=== PATIENT | male | born 2000 ===

== ENCOUNTER 2024-03-27 09:02 | Emergency (ER) | payer BC, SELFPAY ==
[2024-03-27 09:18] VITALS: BP 133/94; PULSE 87; RESP 16; TEMP 36.2; O2SAT 100
--- NOTE | 2024-03-27 10:19 | ED.GENADULT ---
HPI - General Adult General Chief complaint: Nausea/Vomiting/Diarrhea Stated complaint: Vomiting/Fever/Nausea Source: patient Mode of arrival: ambulatory Limitations: no limitations History of Present Illness HPI narrative: Patient presents for evaluation of nausea, vomiting, diarrhea. Symptom onset 3 days ago. He has also had some dizziness and a headache. No new foods, medications, recent travel, or antibiotic use. He has some lower abdominal cramping. No fevers, chills, cough, shortness of breath, sore throat, otalgia. No recent sick contacts to his knowledge. He does not consume ETOH Related Data Home Medications Medication Instructions Recorded Confirmed escitalopram oxalate 20 mg tablet mg 03/27/24 Allergies Allergy/AdvReac Type Severity Reaction Status Date / Time No Known Allergies Allergy Verified 07/21/15 00:34 Review of Systems Review of Systems: CONSTITUTIONAL: Denies fever, chills, or sweats. EYES: Denies visual changes, redness, or discharge. ENT: Denies rhinorrhea, congestion, sore throat, or otalgia. CARDIOVASCULAR: Denies chest pain, palpitations, or edema. RESPIRATORY: Denies cough or dyspnea. GASTROINTESTINAL: Reports lower abdominal cramping, nausea, vomiting and diarrhea GENITOURINARY: Denies dysuria or hematuria. SKIN: Denies rash or itching. MUSCULOSKELETAL: Denies back pain, joint pain, or myalgia. NEUROLOGIC: Reports headache and dizziness. Denies numbness. PSYCHIATRIC: Denies anxiety or depression. PMFSH Past Medical History Medical History No pertinent past medical history Surgical History Surgical History No pertinent past surgical history Family History Family History Mother Family history non-contributory Social History Social History Substance use: current Substance use type: marijuana Gender identity (if verbalized by the patient): Male Spiritual care concerns: No Exam Narrative: GENERAL: Well-appearing, well-nourished, and in no acute distress. HEAD: Normocephalic, atraumatic. EYES: PERRLA and EOMI. ENT: Nares clear, no rhinorrhea or epistaxis. Mucous membranes moist. Oropharynx without tonsillar hypertrophy exudate or other lesions. Bilateral TMs pearly ríos nonbulging NECK: Supple. No adenopathy or masses. No carotid bruits or JVD CHEST: Clear to auscultation. No respiratory distress. No wheezes rales or rhonchi HEART: Regular rate and rhythm. No murmur heard. Normal peripheral pulses. ABDOMEN: Soft, mild diffuse tenderness without rebound or guarding. Abdomen is nondistended, normal active bowel sounds. EXTREMITIES: Normal range of motion. No edema. SKIN: Warm, dry, no rash. NEURO: No focal deficits. Alert and oriented x3. PSYCH: Normal mood and affect. Course Course Emergency Course: This is a 23 yr old male who presented for evaluation of nausea, vomiting, and diarrhea. Influenza and COVID were negative. I offered to send him to the emergency department for labs and potential imaging. He declined. I did advise in the event that he has persistent or worsening symptoms that do not respond to medication he should keep a low threshold on going to the ER. Will dc with lomotil and zofran. He should follow up with primary provider and follow a bland diet. Pt in agreement with plan of care. Level of Care: Express Care Visit Vital Signs Vital signs: Vital Signs Temperature 36.2 C L 03/27/24 09:18 Pulse Rate 87 03/27/24 09:18 Respiratory Rate 16 03/27/24 09:18 Blood Pressure 133/94 H 03/27/24 09:18 Pulse Oximetry 100 03/27/24 09:18 Oxygen Delivery Room Air 03/27/24 09:18 Temperature 36.2 C L 03/27/24 09:18 Pulse Rate 87 03/27/24 09:18 Respiratory Rate 16
[2024-03-27 10:40] LABS: EDCOVIDSCREEN Negative (Negative); EDINFLUASCREEN Negative (Negative); EDINFLUBSCREEN Negative (Negative)
== END 2024-03-27 10:49 | disposition home or self-care (01) ==
PROVIDERS: Emergency Provider Nurse Practitioner; PCP Nurse Practitioner
DX: R11.2 Nausea with vomiting, unspecified (principal); R19.7 Diarrhea, unspecified; Z20.822 Contact with and (suspected) exposure to COVID-19; F12.90 Cannabis use, unspecified, uncomplicated
CPT/HCPCS: 87426; 87804; 99213; G0463